=== PATIENT | female | born 1990 | race Two or more races ===

== ENCOUNTER 2018-06-20 13:12 | Emergency (ER) | payer BC, OTHER ==
--- NOTE | 2018-06-20 13:45 | EDPHY ---
H & P Stated Complaint: right lower quad abd pain since , denies n/v/d or fevers Source: Patient Exam Limitations: No limitations - Personal History LMP (Females 10-55): 15-21 Days Ago - Medical/Surgical History Hx Asthma: No Hx Chronic Respiratory Disease: No Hx Diabetes: No Hx Cardiac Disease: No Hx Renal Disease: No Hx Cirrhosis: No Hx Alcoholism: No Hx HIV/AIDS: No Hx Splenectomy or Spleen Trauma: No Other PMH: ankle surg, thumb surg - Social History Smoking Status: Never smoked Alcohol Use: Rarely Drug Use: None <Jorge Ashraf - Last Filed: 06/20/18 15:04> <Laron Dominguez - Last Filed: 06/20/18 16:12> Time Seen by Provider: 06/20/18 13:15 HPI/ROS: This patient is a 28-year-old female otherwise healthy who presents with pelvic pain that she noticed during intercourse with her 3 days prior to arrival with steady crampy pain since that time. She notices this in the right lower quadrant. She states that the intensity of the pain is 4/10. She notes no clear exacerbating factors. She admits that she has not tried any over -the-counter analgesics and denies any other associated symptoms. She has not had this pain before. She does notice any particular worsening with movement. She presented initially at [facility] and sent here for further evaluation. Her drove her in by private vehicle. ROS: Constitutional: No fevers or chills. HEENT: No URI symptoms or other complaints new line pulmonary: No cough shortness of breath Cardiovascular: No significant lightheadedness or chest pain GI: No upper belly pain. No nausea vomiting. She maintains normal appetite. She has had normal bowel movements-twice a day. : No vaginal discharge. No hematuria. No dysuria, frequency urgency. Integumentary: No skin rash Neuro: No complaints 10 point review of symptoms is performed and otherwise negative with exception of pertinent positives and negatives listed in HPI and ROS (Jorge Ashraf) - Medical/Surgical History PMH: No prior abdominal surgeries (Jorge Ashraf) - Physical Exam Exam: General Appearance: Alert, no distress. Eyes: Pupils equal and round no pallor or injection. ENT, Mouth: Mucous membranes moist. Respiratory: There are no retractions, lungs are clear to auscultation. Cardiovascular: Regular rate and rhythm. Gastrointestinal: Normal of, soft, moderate tenderness in addition that she states is less severe than the left lower quadrant. No guarding or rebound tenderness. Back: No CVA tenderness Neurological: GCS 15 Skin: Warm and dry, no rashes. Musculoskeletal: Neck is supple nontender. Extremities are symmetrical, full range of motion. Psychiatric: Mood and affect are normal DIFFERENTIAL DIAGNOSIS: After history and physical exam differential diagnosis was considered for air insufflation the pelvis during intercourse, ovarian cyst , ruptured ovarian cyst, UTI, ureteral stone, ectopic , appendicitis, diverticulitis, constipation (Jorge Ashraf) Constitutional: Initial Vital Signs Temperature (C) 36.9 C 06/20/18 13:17 Heart Rate 67 06/20/18 13:17 Respiratory Rate 18 06/20/18 13:17 Blood Pressure 115/59 L 06/20/18 13:17 O2 Sat (%) 99 06/20/18 13:17 O2 Delivery Mode Room Air Allergies/Adverse Reactions: No Known Allergies Allergy (Unverified 06/20/18 13:17) Home Medications: Medication Instructions Recorded NK [No Known Home Meds] 03/24/16 Medical Decision Making <Jorge Ashraf - Last Filed: 06/20/18 15:04> - Diagnostics Imaging: Discussed imaging studies w/ environmental tech Radiologist, I viewed and interpreted images myself <Laron Dominguez - Last Filed: 06/20/18 16:12> - Diagnostics Imaging Results: Imaging Impressions Abdomen Ultrasound 06/20/18 13:40 Impression: 1. Appendix not visualized. 2. Consider additional imaging if clinically indicated. Findings and recommendations discussed with Emergency Department physician, Dr. Dominguez at 15:47 hour, 06/20/2018. Final report concurs with initial preliminary interpretation. ED Course/Re-evaluation: IV is established. I counseled patient and her regarding differential diagnosis and plan for workup to include ultrasound I reviewed the patient's normal labs and at 3:00 p.m. Discussed the case with Dr. Ab Dominguez, oncoming emergency physician with sonogram study results pending. He will follow up on those results and finalize disposition. Patient remains comfortable and continues to decline analgesics. I counseled her regarding her normal lab findings. Discussion: Patient presents with pelvic pain onset during intercourse/lower belly pain 3 days ago without red flag findings in terms of her history or exam. She is not . She does not have a UTI or RBCs in her urine. I think is likely that she has ovarian cyst or air insufflated during intercourse causing her symptoms. I think that is unlikely she has appendicitis given lack of GI symptoms, fevers or worsening of her symptoms over the past 3 days. Anticipate discharge home and do not feel clinically that she warrants further imaging if the sonogram is unremarkable in terms of the right lower quadrant. I counseled patient and her regarding this. She does understand the need to return emergency department should she develop worsening symptoms or develop additional symptoms despite treatment plan of [id number] analgesics. (Jorge Ashraf) I took over care of this patient at 3:00 p.m.. We are awaiting results of pelvic ultrasound. Please see above dictation by Dr. Jorge Ashraf for further details. Abdominal and pelvic ultrasound. The appendix was not visualized. The pelvic ultrasound was significant for a collapsing corpus luteum cyst or hemorrhagic cyst involving the right ovary. Otherwise no evidence of torsion or other pathology. Results were discussed with staff radiologist Dr. Patricio Prakash. 4:10 p.m., the patient was re-evaluated. I discussed the results of her ultrasound both abdominal and pelvic. Repeat abdominal exam she is soft, nontender nondistended. Bowel sounds are active. She denies any pain at this time I feel that appendicitis is unlikely. I feel the most likely etiology of her presentation to the emergency department and discomfort is the right ovarian cyst is noted above. She feels comfortable going home with her . Follow-up and return to emergency department precautions were thoroughly reviewed with the 2 of them. All of her questions were answered. The patient was discharged in good condition with her . (Laron Dominguez) - Data Points Laboratory Results: POC Studies: Her CBC is normal Her urinalysis is normal exception of mild ketones. Her urine test is negative (Jorge Ashraf) Point of Care Test Results: CBC CBC Collection Date 06/20/18 CBC Collection Time 13:37 WBC 8.0 RBC 5.02 HGB 12.5 HCT 38.6 PLT 243 Neut # 4.5 Neut 56.1 LYMPH # 2.8 LYMPH 35 Other WBC # 0.7 Other WBC 8.9 MCV 76.9 Comprehensive Metabolic Panel Chloride 103 Creatinine 0.7 Basic Metabolic Panel BMP Collection Date 06/20/18 BMP Collection Time 13:37 Sodium 140 Potassium 3.6 Chloride 103 TCO2 25 Glucose 88 BUN 10 Creatinine 0.7 Calcium 9.4 Urine Collection Date 06/20/18 Collection Time 13:22 HCG Results Negative Urine Dip Collection Date 06/20/18 Collection Time 13:22 Specific [place] (1.002-1.030) 1.025 PH (5.0-7.5) 7.0 Leukocytes (Negative) Negative Nitrites (Negative) Negative Protein (Negative) Negative Glucose (Negative) Negative Ketones (Negative) 1+ Urobilnogen (0.2-1.0 EU) 0.2 Bilirubin (Negative) Negative Blood (Negative) Negative Departure <Jorge Ashraf C - Last Filed: 06/20/18 15:04> <Laron Dominguez - Last Filed: 06/20/18 16:12> - Departure Disposition: Home, Routine, Self-Care Clinical Impression: Abdominal pain, Ovarian cyst Condition: Good Instructions: Acute Abdominal Pain (ED), Ovarian Cyst (ED) Additional Instructions: Read and follow provided instructions. Follow-up with your primary care physician on Friday or Friday of this week for re-evaluation as needed. Ibuprofen dosin mg every 6 hours with meals for the next 3 days only. Take only as needed for pain. Return to the emergency department for worsening pain, fever, vomiting, blood in your stool or other serious concerns. Referrals: Peggy Hodge MD [Primary Care Provider] - As per Instructions
[2018-06-20 16:16] VITALS: BP 109/63
== END 2018-06-20 16:20 | disposition home or self-care (01) ==
LOC: CED 13:12
DX: R10.30 Lower abdominal pain, unspecified (principal); N83.201 Unspecified ovarian cyst, right side
CPT/HCPCS: 76705-PO; 76856-PO

== ENCOUNTER → 2018-08-21 | Outpatient (CLI) | payer BC | LOC: FIMAGING 16:36 | PROVIDERS: ATTEND Obstetrics & Gynecology | DX: N83.201 Unspecified ovarian cyst, right side (principal) ==